=== PATIENT | male | born 1975 | race Caucasian/White ===

== ENCOUNTER 2017-01-27 22:32 | Emergency (ER) | payer OTHER ==
[~2017-01-27] VITALS: Ht 167.6 cm; Wt 63.0 kg
[~2017-01-27 22:32] MED LIST: NAPROSYN500 MG PO; RITALIN20 MG PO
[2017-01-28 00:47] VITALS: BP 122/68
== END 2017-01-28 00:49 | disposition home or self-care (01) ==
LOC: EME 22:32
DX: F10.129 Alcohol abuse with intoxication, unspecified (principal); F17.200 Nicotine dependence, unspecified, uncomplicated
CPT/HCPCS: 99281; 99284